=== PATIENT | female | born 1960 | race Caucasian/White ===

== ENCOUNTER 2023-10-03 18:58 | Emergency (ER) | payer OTHER ==
[2023-10-03 19:25] VITALS: RESP 18; TEMP 97.6
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
[2023-10-03 20:16] LABS: Basophils % (A) 0 %; Eosinophils # (A) 0.1 k/uL (0-0.7); Eosinophils % (A) 1 %; HCT 41.1 % (34.0-46.0); HGB 13.3 gm/dL (11.4-16.0); Lymphocytes # (A) 1.9 k/uL (1.0-4.8); Lymphocytes % (A) 22 %; MCH 27.3 pg (25.0-35.0); MCHC 32.3 g/dL (31.0-37.0); MCV 84.6 fL (80.0-100.0); Mean Platelet Volume 8.2; Monocytes # (A) 0.5 k/uL (0-1.0); Monocytes % (A) 6 %; Neutrophils # (A) 6.3 k/uL (1.3-7.7); Neutrophils % (A) 70 %; Platelet Count 296 k/uL (150-450); RBC 4.86 m/uL (3.80-5.40); RDW 12.5 % (11.5-15.5)
[2023-10-03 20:29] LABS: African American GFR (CKD) >90 (>60 ml/min/1.73 sqM); Anion Gap 6 mmol/L; Blood Urea Nitrogen 17 mg/dL (7-17); Calcium 9.1 mg/dL (8.4-10.2); Carbon Dioxide 26 mmol/L (22-30); Chloride 104 mmol/L (98-107); Glucose 115 mg/dL (74-99); Non-African American GFR(CKD) >90 (>60 ml/min/1.73 sqM); Potassium 3.9 mmol/L (3.5-5.1); Sodium 136 mmol/L (137-145)
[2023-10-03] MEDS: MORPHINE SULFATE 2 MG/ML SYRINGE IV STA (20:39)
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
[2023-10-03] MEDS ORDERED: LIDOCAINE 1%-EPI 1:100,000 20 ML VIAL SQ STA (22:30)
[2023-10-03 23:32] VITALS: BP 125/80; PULSE 84
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
== END 2023-10-03 23:10 | disposition home or self-care (01) ==
LOC: EC 18:58
DX: M25.531 Pain in right wrist (principal); Z91.040 Latex allergy status; V89.2XXA Person injured in unspecified motor-vehicle accident, traffic, initial encounter; Y92.411 Interstate highway as the place of occurrence of the external cause
CPT/HCPCS: 36415; 93005; 80048; 85025; 72170; 73030; 73110; 71045; 72125; 70450; 99285; 96374; J2270